=== PATIENT | male | born 1985 | race Caucasian/White ===

== ENCOUNTER 2024-06-10 13:15 | Outpatient (CLI) | payer BC, MEDICARE, MEDICAID, SELFPAY ==
--- NOTE | 2024-06-10 13:12 | PDOC.PAIN ---
Date of service: 06/10/24 Time of Service: 14:19 Pain Managment Procedure Note Procedure Note Procedure Note: Lumbar Transforaminal Epidural Steroid Injection ? Location: RIGHT L3 LEFT L2 ? Pre-procedure Diagnosis: M54.17-Radiculopathy, lumbosacral region M54.16 Radiculopathy, lumbar region ? Post-procedure Diagnosis:? The same as above ? Sedation:? none ? Estimated blood loss:? less than 2 cc ? Surgeon:? Hair Ulloa MD COMMENT: Patient has disc herniation into the right L3 foramen and left L2 foramen ? Procedure Detail:?? The procedure and potential risks were explained to the patient and informed written consent was obtained. The patient was escorted to the procedure room and placed in the prone position. Pillows were utilized for proper positioning and comfort. Time out was performed in the procedure room with nursing staff confirming the patient's identity, procedure to be performed, allergies, and any blood thinning or anti-platelet medications. The patient's lower back was prepped with ChloraPrep and draped in a sterile fashion. Sterile gloves were used, a face mask was worn, new single dose vials of all medications were used with the top being swabbed with alcohol and given time to dry prior to withdrawal of medication. A right-sided oblique fluoroscopic view was obtained, with visualization of L3-4. Lidocaine 1% was used to anesthetize the skin. The tip of a 22-gauge, Quincke needle was advanced toward the 6 o'clock position of the superior pedicle at the target level.? It was advanced just under the pedicle to the neural foramen L3-4. Correct needle placement was confirmed through review of the fluoroscopy. Next, following negative aspiration, 1cc's of Omnipaque 240 contrast was injected under live fluoroscopy which showed good flow throughout the epidural space and no evidence of vascular flow or flow into adjacent compartments. Next, following negative aspiration, 7.5 mg of preservative-free dexamethasone and 0.5ml of 0.5% bupivacaine was injected. The needle was gently removed.? The procedure was also performed in the same fashion at Left L2-3.? The patient tolerated the procedure well.? Permanent images saved and recorded. Plan:? Follow up prn PAIN: PRE PROCEDURE 10/06 POST PROCEDURE 06/06 COMMENT: consider repeat with depomedrol if not long-lasting relief Coding Conscious Sedation used for procedure: No CPT Codes: Transforaminal Lumbar/Sacral (includes fluoro) - 14870 ([id number] ~G) Transforaminal Lumbar/Sacral (includes Fluoro) each add'l - 11331 ([id number] ~G) Additional Codes: Date of Service (00439) Date of service: 06/10/24
[2024-06-10 13:38] VITALS: BP 153/93; PULSE 69; RESP 18; TEMP 37; O2SAT 98
[2024-06-10 13:54] VITALS: PULSE 70; O2SAT 97
[2024-06-10 14:00] VITALS: PULSE 71; O2SAT 96
--- NOTE | 2024-06-10 14:10 | DI.RAD_ITS ---
Exam(s) XR PAIN CLINIC LUMBAR SP 2V EXAM: XR PAIN CLINIC LUMBAR SP 2V CLINICAL HISTORY: Dx: Lumbar Radiculopathy. TECHNIQUE: Fluoroscopy was provided for the referring physician for guidance with performing pain cl inic injection procedure. COMPARISON: No exams were available for comparison FINDINGS: Please see procedure note for details. Fluoro time: 35 seconds RADIATION DOSE DELIVERED: Ka,r=25.8 mGy
[2024-06-10] MEDS: Nerve Block Tray 1 EACH MC (14:14)
[2024-06-10] MEDS: Omnipaque 240 MG/ML 50 ML BTL IJ (14:14)
[2024-06-10] MEDS: Bupivacaine 0.5% Pres-Free 10 ML VIAL IJ (14:15)
[2024-06-10] MEDS: Dexamethasone Sod. Phos./Pres-Free 10 MG/ML VIAL IJ (14:15)
== END 2024-06-10 13:16 | disposition home or self-care (01) ==
PROVIDERS: PCP Physician Assistant; Visit Provider Anesthesiology Pain Medicine
DX: M54.17 Radiculopathy, lumbosacral region (principal); M54.16 Radiculopathy, lumbar region
CPT/HCPCS: 64483; 64484; 72100; J0665; J1100; Q9967

== ENCOUNTER 2024-07-03 13:57 | Outpatient (CLI) | payer BC, MEDICARE, MEDICAID, SELFPAY ==
--- NOTE | 2024-07-03 13:45 | DI.MRI_ITS ---
Exam(s) MR LUMBAR SPINE WO EXAM: MR LUMBAR SPINE WO CLINICAL HISTORY: Increased pain after procedure with right leg numb, lumbar radiculitis. TECHNIQUE: Multiplanar multisequence MRI of the Lumbar spine was performed. COMPARISON: MR MR LS SPINE WO CONTRAST from 03/22/2024 XR PAIN CLINIC LUMBAR SP 2V from 06/10/2024 FINDINGS: Bones: The last intervertebral disc space is designated the L5/S1 level for the numbering purpose of this ex amination. The vertebral body heights are well maintained. Alignment: Unremarkable. The marrow signal characteristics are unremarkable. Cord: The conus tip ends at the T12 level. It is of normal size and signal intensity. T12-L1: No focal disc herniation is present. No central spinal canal stenosis.No neural foraminal st enosis. L1-2: No focal disc herniation is present. No central spinal canal stenosis.No neural foraminal sten osis. L2-3: Similar appearance of far left lateral disc bulging. No central spinal canal stenosis.No neur al foraminal stenosis. L3-4: Stable appearance of minimal left right foraminal disc protrusion. Small endplate osteophyte a t this level. No central spinal canal stenosis.Mild right neural foraminal narrowing. Neural jim inal stenosis. L4-5: No focal disc herniation is present. No central spinal canal stenosis.No neural foraminal sten osis. L5-S1: No focal disc herniation is present. No central spinal canal stenosis.No neural foraminal st enosis. The visualized SI joints and sacrum are unremarkable. Soft tissues: Edema seen in the posterior subcutaneous fat without visible drainable collection. Si milar to the prior exam. Commonly seen with obesity. IMPRESSION: No evidence of a postprocedural complication. Normal marrow signal. Normal disc signal. No epidura l abnormality is identified. Similar appearance of disc bulging at L2-3 and L3-4. DATA REPOSITORY:
== END 2024-07-03 14:17 ==
LOC: DI 13:58
PROVIDERS: PCP Physician Assistant; Visit Provider Anesthesiology Pain Medicine
DX: M54.16 Radiculopathy, lumbar region (principal); M51.26 Other intervertebral disc displacement, lumbar region
CPT/HCPCS: 72148